=== PATIENT | female | born 1995 | race Caucasian/White ===

== ENCOUNTER 2025-03-16 10:35 | Emergency (ER) | payer MEDICAID ==
[~2025-03-16] VITALS: Ht 152.4 cm; Wt 49.0 kg
[2025-03-16 10:40] VITALS: TEMP 98.2
[2025-03-16] MEDS: BENZOCAINE 10% 7 GM GEL TP ONE (11:46)
[2025-03-16 12:40] VITALS: BP 120/65; PULSE 75; RESP 18; O2SAT 99
[2025-03-16] MEDS ORDERED: CHLO473M6 PO (13:01)
== END 2025-03-16 13:39 | disposition home or self-care (01) ==
LOC: EMS 10:42
DX: K12.0 Recurrent oral aphthae (principal)
CPT/HCPCS: 99282; Z7502; Z7610